=== PATIENT | male | born 1995 | race Caucasian/White ===

== ENCOUNTER 2020-08-11 04:04 | Emergency (ER) | payer BC ==
[2020-08-11 05:22] VITALS: BMI 25.0
[2020-08-11 07:14] VITALS: BP 122/62; PULSE 83; TEMP 97.3
[2020-08-11 07:29] LABS: BASO % 0.4 % (0-2.0); EOS % 2.4 % (0-4.5); HEMATOCRIT 45.4 % (35.4-49); HEMOGLOBIN 15.5 GM/dL (11.7-16.9); MCH 30.1 pg (25.7-33.7); MCHC 34.1 g/dl (32.0-35.9); MEAN CELL VOLUME 88.1 fl (80-96); MEAN PLT VOLUME 9.1 fl (7.5-11.1); MONO % 8.2 % (3.8-10.2); PLATELET COUNT 162 K/MM3 (134-434); RBC 5.16 M/mm3 (4.00-5.60); RDW 13.4 % (11.9-15.9); WHITE BLOOD COUNT 7.5 K/mm3 (4.0-10.0)
[2020-08-11 07:43] LABS: CHLORIDE 106 mmol/L (98-107); POTASSIUM 4.1 mmol/L (3.5-5.1); SODIUM 142 mmol/L (136-145)
[2020-08-11 07:45] LABS: CALCIUM 8.9 mg/dL (8.5-10.1)
[2020-08-11 07:46] LABS: ALBUMIN 4.3 g/dl (3.4-5.0); ANION GAP 7 MMOL/L (8-16); CO2 30 mmol/L (21-32); GLUCOSE,RANDOM 90 mg/dL (74-106)
[2020-08-11 07:49] LABS: CREATININE 0.8 mg/dL (0.55-1.3); SGOT/AST 17 U/L (15-37); SGPT/ALT 23 U/L (13-61)
[2020-08-11 07:50] LABS: BILIRUBIN,TOTAL 1.2 mg/dL (0.2-1); TOT PROT 7.3 g/dl (6.4-8.2)
[2020-08-11 07:51] LABS: ALK PHOS 71 U/L (45-117)
[2020-08-15 17:44] LABS: HIV INTERPRETATION NEGATIVE (NEGATIVE)
== END 2020-08-11 08:45 | disposition home or self-care (01) ==
LOC: JER 04:04
DX: R07.9 Chest pain, unspecified (principal)
CPT/HCPCS: 36415; 71046-TC-FY; 80053; 82550; 84484; 85025; 86780; 87389; 87491; 87522; 87591; 93005; 93010; 99285-25

== ENCOUNTER 2021-11-05 00:10 | Emergency (ER) | payer BC, OTHER ==
[2021-11-05 00:38] VITALS: BP 142/71; PULSE 79; TEMP 98.1; BMI 29.0
== END 2021-11-05 03:50 | disposition home or self-care (01) ==
LOC: JER 00:10
DX: R00.2 Palpitations (principal); F19.90 Other psychoactive substance use, unspecified, uncomplicated
CPT/HCPCS: 93005; 93010; 99283-25

== ENCOUNTER 2023-04-23 10:21 | Emergency (ER) | payer OTHER, BC ==
[2023-04-23 10:31] VITALS: BP 116/68; RESP 20; TEMP 98.2; BMI 28.0
[2023-04-23 10:49] VITALS: PULSE 55
[2023-04-23] MEDS ORDERED: TETRACAINE 0.5% HCL 0.6ML DROPPER.BOTTLE OS ONE (11:04)
[2023-04-23] MEDS ORDERED: FLUORESCEIN NA 1 EA STRIP OS ONE (11:04)
[2023-04-23] MEDS ORDERED: FLUORESCEIN NA 1 EA STRIP ONE (11:25)
[2023-04-23] MEDS ORDERED: TETRACAINE 0.5% OPHTH SOLN 2 ML BOTTLE ONE (11:25)
== END 2023-04-23 12:03 | disposition home or self-care (01) ==
LOC: JERFT 10:21
DX: H57.12 Ocular pain, left eye (principal); H57.89 Other specified disorders of eye and adnexa; H11.432 Conjunctival hyperemia, left eye
CPT/HCPCS: 99283-25

== ENCOUNTER 2023-10-12 10:54 | Emergency (ER) | payer OTHER ==
[2023-10-12 11:15] VITALS: BP 111/69; PULSE 53; RESP 18; TEMP 98.5; BMI 27.4
[2023-10-12 13:11] LABS: BASO % 0.3 % (0-2.0); EOS % 1.2 % (0-4.5); HEMATOCRIT 43.1 % (35.4-49); HEMOGLOBIN 14.2 GM/dL (11.7-16.9); LYMPH % 25.3 % (8-40); MCH 29.6 pg (25.7-33.7); MEAN CELL VOLUME 89.6 fl (80-96); MEAN PLT VOLUME 8.6 fl (7.5-11.1); MONO % 7.4 % (3.8-10.2); NEUT % 65.8 % (42.8-82.8); PLATELET COUNT 159 10^3/uL (134-434); RBC 4.81 M/mm3 (4.00-5.60); RDW 13.5 % (11.9-15.9); WHITE BLOOD COUNT 6.9 K/mm3 (4.0-10.0)
[2023-10-12 13:18] LABS: INR 1.08 (0.83-1.09); PROTHROMBIN TIME (PATIENT) 12.5 SEC (9.7-13.0)
[2023-10-12 13:21] LABS: ACTIVATED PTT 29.4 SECONDS (25.2-36.5)
[2023-10-12 13:30] LABS: POTASSIUM 4.5 mmol/L (3.5-5.1)
[2023-10-12 13:33] LABS: CALCIUM 9.3 mg/dL (8.5-10.1)
[2023-10-12 13:34] LABS: BLOOD UREA NITROGEN 12.5 mg/dL (7-18)
[2023-10-12 13:37] LABS: CREATININE 0.8 mg/dL (0.55-1.3)
== END 2023-10-12 14:39 | disposition home or self-care (01) ==
LOC: JER 10:54
DX: R07.89 Other chest pain (principal); I49.8 Other specified cardiac arrhythmias; R00.2 Palpitations; F41.9 Anxiety disorder, unspecified
CPT/HCPCS: 36415; 71046-TC-FY; 80053; 84484; 85025; 85610; 85730; 93005; 93010; 99285-25

== ENCOUNTER 2024-09-28 22:07 | Emergency (ER) | payer OTHER ==
[2024-09-28 22:15] VITALS: BP 131/65; PULSE 55; RESP 20; TEMP 97.7; BMI 29.7
[2024-09-28] MEDS: KETOROLAC TROMETHAMINE 30 MG/1 ML VIAL IM ONE (22:45)
[2024-09-28] MEDS ORDERED: KETOROLAC TROMETHAMINE 30 MG/1 ML VIAL ONE (22:46)
== END 2024-09-28 22:56 | disposition home or self-care (01) ==
LOC: JERFT 22:07 → JER 22:07 → JERFT 22:56
PROC: 3E0233Z Introduction of Anti-inflammatory into Muscle, Percutaneous Approach (ICD-10-PCS; principal; 2024-09-28)
DX: R22.0 Localized swelling, mass and lump, head (principal); K08.89 Other specified disorders of teeth and supporting structures
CPT/HCPCS: 99284-25